=== PATIENT | female | born 1950 | race Caucasian/White ===

== ENCOUNTER 2018-06-25 08:48 | Observation (INO) | payer OTHER ==
--- NOTE | 2018-06-25 10:05 | EDPHY ---
H & P Smoking Status: Former smoker Time Seen by Provider: 06/25/18 09:28 HPI/ROS: CHIEF COMPLAINT: Abdominal pain, chest pain HISTORY OF PRESENT ILLNESS: 68-year-old female presents to the emergency department by private vehicle with her daughter complaining of right-sided pain that began late last night. The patient states that she has pain in her right upper quadrant and underneath her right breast. She states that she was just sitting on the couch when the pain began rather abruptly. She ate a late dinner around 930 or 10:00 p.m.. She has never had this pain in the past. She does not feel short of breath. She does however have COPD and when she had a biopsy done she did have a pneumothorax. She states that this feels somewhat similar although she has not had a recent biopsy or any other change. She recently flew in from [place] just a few days ago. She denies calf pain or swelling. Denies abdominal pain. No fevers or chills. REVIEW OF SYSTEMS: Constitutional: No fever, no chills. Eyes: No double or blurry vision. ENT: No sore throat. Respiratory: No cough, no shortness of breath. Cardiac: No chest pain. Gastrointestinal: Abdominal pain as above. No vomiting or diarrhea. Genitourinary: No dysuria. Musculoskeletal: No neck or back pain. Skin: No rashes. Neurological: No headache. (Cassi Evansa Maggie) Past Medical/Surgical History: COPD, breast cancer treated with radiation and lumpectomy, CABG (Cassi Evansa Maggie ) Social History: Visiting from [place] (Cassi Evansa Maggie) Physical Exam: General Appearance: Alert, no distress. 144/64, 36.5 temperature nontoxic- appearing. Eyes: Pupils equal and round. Extraocular motions are all intact. ENT: Mouth: Mucous membranes moist. Respiratory: No wheezing, rhonchi, or rales, lungs are clear to auscultation. Unable to reproduce chest wall pain with palpation to the anterior aspect of her right chest wall. Cardiovascular: Regular rate and rhythm. Gastrointestinal: Abdomen is soft. She has tenderness with palpation in the right upper quadrant. There is no masses, rebound or guarding noted. No CVA tenderness bilaterally. Neurological: Alert and oriented x 3, cranial nerves II through XII grossly intact Skin: Warm and dry, no rashes. Musculoskeletal: Nontender to palpate along the cervical, thoracic or lumbar spine. Neck is supple. Extremities: Full range of motion and no peripheral edema. Psychiatric: Patient is oriented X 3, there is no agitation. (Sujatha Evans) Constitutional: Initial Vital Signs Temperature (C) 36.5 C 06/25/18 08:50 Heart Rate 65 06/25/18 08:50 Respiratory Rate 18 06/25/18 08:50 Blood Pressure 144/64 H 06/25/18 08:50 O2 Sat (%) 92 06/25/18 08:50 O2 Delivery Mode Room Air Allergies/Adverse Reactions: No Known Allergies Allergy (Verified 06/25/18 13:20) Home Medications: Medication Instructions Recorded Albuterol Sulfate [Proair Hfa] 1 - 2 puffs IH Q4H 06/25/18 Atorvastatin Calcium [Lipitor 40 40 mg PO DAILY 06/25/18 mg (*)] Cholecalciferol Vit D3 [Vitamin D3 2,000 units PO DAILY 06/25/18 (*)] FLUoxetine HCL [Fluoxetine HCl] 40 mg PO DAILY 06/25/18 Levothyroxine [Synthroid 100 mcg 100 mcg PO DAILY06 06/25/18 (*)] Lisinopril [Zestril 10 mg (*)] 10 mg PO DAILY 06/25/18 Omeprazole 20 mg PO DAILY 06/25/18 Tiotropium Inhaler [Spiriva 18 mcg IH DAILY 06/25/18 Handihaler] Medical Decision Making - Diagnostics Imaging: Discussed imaging studies w/ call worker person Radiologist, I viewed and interpreted images myself - Diagnostics EKG Interpretation: EKG reveals normal sinus rhythm. This was reviewed by Dr. Refugio Maciel. See interpretation in trace master. (Sujatha Evans) ED Course/Re-evaluation: 60-year-old female presents to the emergency department with right-sided chest pain and abdominal pain. The patient has an elevated D-dimer of 0.7. As concerned about possible pulmonary embolism. CT pulmonary angiogram reveals pulmonary nodule in the left upper lobe without evidence of pulmonary embolism. Patient also had some discomfort in her right upper quadrant. This was tender to palpate. Her liver function tests were normal. Lipase was normal ultrasound of the right upper quadrant was essentially negative. The patient had elevated troponin of 0.19 and this was repeated on new blood and was elevated at 0.22. The patient will be admitted to the hospitalist to the telemetry floor. She was given full-strength aspirin in the emergency department. The case was discussed with Dr. Refuigo Maciel, secondary supervising physician, who did not directly evaluate the patient but agrees with treatment and plan. ( Sujatha Evans) I did not see this patient while she was in the emergency department. However her care was discussed with the PA while the patient was in the department. I agree with treatment plan and management (Refugio Maciel) Differential Diagnosis: Including but not limited to cholecystitis, cholelithiasis, GERD, peptic ulcer disease, pneumothorax, myocardial infarction, pneumonia, COPD exacerbation ( Sujatha Evans) - Data Points Laboratory Results: Laboratory Results 06/25/18 09:55 06/25/18 09:55 Medications Given: Discontinued Medications Aspirin (Aspirin) 325 mg PO EDNOW ONE Stop: 06/25/18 13:23 Last Admin: 06/25/18 13:28 Dose: Not Given Aspirin (Aspirin) 325 mg PO DAILY MAC Stop: 12/23/18 08:59 Last Admin: 06/26/18 10:39 Dose: 325 mg Atorvastatin Calcium (Lipitor) 40 mg PO DAILY MAC Stop: 12/23/18 08:59 Last Admin: 06/26/18 10:39 Dose: 40 mg Enoxaparin Sodium (Lovenox) 40 mg SC DAILY MAC Stop: 12/23/18 08:59 Last Admin: 06/26/18 10:40 Dose: 40 mg Fluoxetine HCl (Prozac) 40 mg PO DAILY MAC Stop: 12/23/18 08:59 Last Admin: 06/26/18 10:39 Dose: 40 mg Levothyroxine Sodium (Synthroid) 100 mcg PO DAILY06 MAC Stop: 12/23/18 05:59 Last Admin: 06/26/18 05:54 Dose: 100 mcg Lisinopril (Zestril) 10 mg PO DAILY MAC Stop: 12/23/18 08:59 Last Admin: 06/26/18 10:39 Dose: 10 mg Pantoprazole Sodium (Protonix) 40 mg PO DAILY MAC Stop: 12/23/18 08:59 Last Admin: 06/26/18 10:39 Dose: 40 mg Tiotropium [place] (Spiriva Handihaler) 18 mcg IH DAILY MAC Stop: 12/23/18 08:59 Last Admin: 06/26/18 10:03 Dose: 1 puffs Point of Care Test Results: Chemistry 06/25/18 06/25/18 12:42 12:26 POC Troponin I 0.22 ng/mL H ng/mL 0.19 ng/mL H ng/mL (0.00-0.08) (0.00-0.08) Departure - Departure Disposition: [facility] Inpatient Acute Clinical Impression: Right sided abdominal pain, Right-sided chest pain, Elevated troponin Condition: Good
[2018-06-25 10:11] LABS: PLATELET COUNT 194 10^3/uL (150-400)
[2018-06-25] MEDS ORDERED: IOPAMIDOL (ISOVUE 370) 100 ML BTL IV ONE (10:38)
[2018-06-25] MEDS ORDERED: ASPIRIN 325 MG TAB PO ONE (13:22)
[2018-06-25] MEDS ORDERED: ACETAMINOPHEN 325 MG TAB PO PRN (13:49)
[2018-06-25] MEDS ORDERED: ALBUTEROL 60 PUFFS/8 GM MDI IH PRN (14:30)
--- NOTE | 2018-06-25 16:01 | CPEKG ---
Test Reason : OPEN Blood Pressure : / mmHG Vent. Rate : 053 BPM Atrial Rate : 053 BPM P-R Int : 175 ms QRS Dur : 078 ms QT Int : 468 ms P-R-T Axes : 067 038 068 degrees QTc Int : 440 ms Sinus rhythm Nonspecific T abnormalities, anterior leads Confirmed by Refugio Maciel ([id number]) on 06/25/2018 4:01:15 PM Referred By: Confirmed By:Refugio Maciel
--- NOTE | 2018-06-25 18:42 | GHP ---
[f rep st] HISTORY AND PHYSICAL DATE OF ADMISSION: 06/25/2018 PRIMARY CARE PROVIDER: The patient is traveling from [place]. CHIEF COMPLAINT: Right-sided chest pain. HISTORY OF PRESENT ILLNESS: The patient is a pleasant 68-year-old female with a past medical history of hypertension, COPD, who is traveling to [place] with her daughter as her daughter is moving to [facility]. She presented to the [facility] emergency room after developing rather abru pt onset right-sided pleuritic like chest pain last evening when she was sitting down watching TV. S he monitored the pain overnight but then with the persistence of it came in for evaluation today. In the emergency room, she was found to have an elevated D-dimer of 0.70 and troponin of 0.22. She und erwent further investigation with a CT angiography of the chest and thorax. No definite evidence of thromboemboli was seen. She did have evidence of an atherosclerotic aorta without aneurysm or dissec tion. Severe bullous emphysema was also found. Mild cardiomegaly was noted. With the elevated trop onin and chest pain symptoms, she is being admitted for further observation and workup. PAST MEDICAL HISTORY: 1. Ascending aorta aneurysm repair with valve repair, suspecting mitral. 2. Hypertension. 3. COPD. 4. Hypothyroidism. 5. Hyperlipidemia. PAST SURGICAL HISTORY: History of lung biopsy complicated by pneumothorax, ascending aortic aneurysm repair and the patient states also a valve was operated on, but not replaced, suspecting mitral. Re cords not currently available. MEDICATIONS: 1. Albuterol every 4 hours as needed. 2. Lipitor 40 mg daily. 3. Fluoxetine 40 mg daily. 4. Levothyroxine 100 mcg daily. 5. Lisinopril 10 mg daily. 6. Omeprazole 20 mg daily. 7. Spiriva 1 puff daily. ALLERGIES: No known drug allergies. FAMILY HISTORY: Mother and father are both . Father of heart disease. Mother at an ad vanced age in her 90s, but had a history of diabetes. SOCIAL HISTORY: The patient is currently . She has 1 daughter who has recently moved to [facility]. She previously smoked but has quit tobacco. She is a full code status. REVIEW OF SYSTEMS: CONSTITUTIONAL: No complaints of any fevers or chills. ENT: No recent upper re spiratory illnesses over the past 1-2 months. CARDIOVASCULAR: No complaints of any left-sided chest pain, neck pain or left arm pain. No palpitations or syncopal episodes. RESPIRATORY: No complaint s of shortness of breath, although she does describe right-sided pleuritic-type chest pain. GI: No nausea, vomiting, diarrhea, or constipation. : No reports of any difficulty with urination. NEUR OLOGIC: No complaints of headaches or focal weakness. HEMATOLOGIC: No history of any deep vein thr ombosis or pulmonary embolism. PSYCHIATRIC: No anxiety or depression. ENDOCRINE: No history of po lyuria or heat intolerance. SKIN: No new skin rashes. MUSCULOSKELETAL: . PHYSICAL EXAMINATION: CHEST: Clear on auscultations. Somewhat diminished breath sounds throughout. HEART: Regular. No distinct murmurs appreciated. ABDOMEN: Soft, nontender, nondiste nded. : No Tyler catheter in place. EXTREMITIES: No significant pitting edema or calf pain with palpation of her calf muscles. NEUROLOGIC: Cranial nerves 2-12 appear grossly intact with 5/5 stre ngth in extremities. LABORATORY DATA: White blood cell count is 6, hemoglobin 12, platelets 194. Sodium 143, potassium 4 .1, chloride 107, bicarb 26, BUN 19, creatinine 0.9, glucose 118, AST 24, ALT 30, alk phos 120, bilir ubin is 0.5. Troponin 0.22. Lipase 114. D-dimer 0.70. IMAGING: As detailed in the HPI. Also with unremarkable abdominal ultrasound and no pneumonia seen on chest x-ray. ECG shows sinus bradycardia with decreased T-waves in V2 and V3. ASSESSMENT/PLAN: 1. Chest pain. The patient is describing a pleuritic-like chest pain in the right side of her chest under the right breast which feels deeper down in her lung tissue. No evidence of PE by CT imaging. However, her troponin is mildly elevated. I recommend admission overnight to trend her troponins w ith a repeat ECG as well tomorrow. She is currently without any significant chest pain so I think we can follow for now without any nitroglycerin drip or anticoagulation, but consider if escalation ove rnight. I will also obtain an echocardiogram as well as lower extremity Dopplers. Considering the e levated D-dimer and recent long road trip from [place]. 2. Ascending aortic aneurysm. Patient states she has had a ascending aneurysm that was previously o perated on. We will await further evaluation with echo. 3. Hypertension. Continue current lisinopril. 4. Chronic obstructive pulmonary disease. Continue with current nebulizer regimen. 5. History of breast cancer. Patient states history of breast cancer on the left, treated with lump ectomy and radiation. No chemotherapy. 6. Hypothyroidism. Continue current dosing of levothyroxine. 7. Hyperlipidemia. Continue statin therapy. We will check a lipid panel in the morning. 8. Deep venous thrombosis prophylaxis. Lovenox. DISPOSITION: I will admit her under observation status. /[id number]/MODL
[2018-06-26 03:58] LABS: PLATELET COUNT 187 10^3/uL (150-400)
[2018-06-26] MEDS ORDERED: LEVOTHYROXINE 100 MCG TAB PO SCH (06:00)
[2018-06-26] MEDS ORDERED: FLUoxetine 20 MG CAP PO SCH (09:00)
[2018-06-26] MEDS ORDERED: PANTOPRAZOLE SODIUM 40 MG TAB PO SCH (09:00)
[2018-06-26] MEDS ORDERED: LISINOPRIL 10 MG TAB PO SCH (09:00)
[2018-06-26] MEDS ORDERED: ATORVASTATIN CALCIUM 40 MG TAB PO SCH (09:00)
[2018-06-26] MEDS ORDERED: TIOTROPIUM INHALER 18 MCG/DOSE 5 DOSE/MDI IH SCH (09:00)
[2018-06-26] MEDS ORDERED: ASPIRIN 325 MG TAB PO SCH (09:00)
[2018-06-26] MEDS ORDERED: ENOXAPARIN 40 MG/0.4 ML SYR SC SCH (09:00)
--- NOTE | 2018-06-26 10:47 | ASMTCASEMG ---
Living Arrangements What is your living Answers: With Spouse arrangement? Who do you live with? Type Of Residence What kind of residence do Answers: House you live in? Discharge Plan Comments Coordination Status Comments Notes: CM spoke to COLLIN Lord regarding d/c POC. Pt is a 68 y/o female admitted for right sided chest pain. Pt will most likely d/c independent when medically stable. Pt is scheduled for an echo. No other needs at this time. CM available for changes. Plan: Independent Date Signed: 06/26/2018 10:47 AM Electronically Signed By:DERRELL Emanuel
[2018-06-26 11:38] VITALS: BP 142/55
--- NOTE | 2018-06-26 12:27 | ECHO ---
[email or web address] [address] [address] Main: [phone] Fax: Transthoracic Echocardiogram Name: KARLA LEE MR#: [id number] Study Date: 06/26/2018 Study Time: 09:00 AM Date of : 1950 Age: 68 year(s) Height: 165.1 cm (65 in.) Weight: 97.98 kg (216 lb.) BSA: 2.04 m2 Gender: Female Examination: Indication: Right sided chest pain, Ascending Ao replacement Image Quality: Contrast: Requested by: Claudy Zuniga BP: 111 mmHg/59 mmHg Heart Rate: Rhythm: Normal sinus rhythm Indication: Right sided chest pain, Ascending Ao replacement Procedure Staff System Configuration Specialist: Mynor Cortez RDCS Reading Physician: Keith Vela MD Requesting Provider: Conclusions: Normal size left ventricle. Mild concentric LV hypertrophy. Normal global systolic LV function. EF is 76 %. Diastolic dysfunction is present. . Normal size right ventricle. Mild mitral valve leaflet calcification is present. Trivial mitral valve regurgitation. Mild aortic valve regurgitation is present. The tricuspid valve is normal in appearance and function. Mild tricuspid regurgitation is present. Trivial pulmonic valve regurgitation. There is a Ascending aorta replacement measuring 3.0cm.. No pericardial effusion. Measurements: Chambers Valvular Assessment AV/MV Valvular Assessment TV/PV Normal Normal Normal Name Value Range Name Value Range Name Value Range Ao Stella (MM): 2.5 cm (2.2 cm-3.7 AV Vmax: 2.02 m/s (1 m/s-1.7 TR Vmax: 3.05 mm/s ( - ) cm) m/s) TR PGmax: 37 mmHg ( - ) IVSd (2D): 1.1 cm (0.6 cm-1.1 AV maxP mmHg ( - ) syst. PAP: 42 mmHg ( - ) cm) AV meanP mmHg ( - ) PV Vmax: 1.06 m/s (0.6 m/s-0.9 LVDd (2D): 4.2 cm (3.9 cm-5.3 ANIA (VTI): 1.2 cm ( - ) m/s) cm) AR (PHT): 519 ms ( - ) PV PGmax: 4 mmHg ( - ) LVDs (2D): 2.3 cm (2.1 cm-4 MV E Vmax: 1.16 m/s ( - ) cm) MV A Vmax: 0.95 m/s ( - ) LVPWd (2D): 1.0 cm ( - ) MV E/A: 1.22 ( - ) LVOTd 1.9 cm 1.9 cm mm Patient: KARLA LEE Study Date: 06/26/2018 Page 1 of 2 09:00 AM LVEF (2D): 76 (>=54 %) Continued Measurements: Chambers Valvular Assessment AV/MV Valvular Assessment TV/PV Name Value Name Value Name Value LADs Lon.5 cm MV E' Septal: 0.07 m/s CVP (est.): 5 mmHg LA Area: 15.8 cm2 MV E/E' Septal: 17.00 LA Volume: 51 ml MV E/E' Lateral: 18.60 LA Volume Index: 25.0 ml/m2 AR Vmax: 2.89 cm/s AR VTI: 175.0 cm Findings: Left Ventricle: Normal size left ventricle. Mild concentric LV hypertrophy. Normal global systolic LV function. EF is 76 %. No regional wall motion abnormality. Diastolic dysfunction is present. . Right Ventricle: Normal size right ventricle. Normal RV function. Left Atrium: The left atrium is normal in size. Right Atrium: The right atrium is normal in size. Mitral Valve: Mild mitral valve leaflet calcification is present. Trivial mitral valve regurgitation. Aortic Valve: The aortic valve is tri-leaflet and functions normally. Mild aortic valve regurgitation is present. Tricuspid Valve: The tricuspid valve is normal in appearance and function. Mild tricuspid regurgitation is present. The pulmonary artery pressure is mildly increased. Pulmonic Valve: The pulmonic valve is normal in appearance and function. Trivial pulmonic valve regurgitation. Aorta: There is a Ascending aorta replacement measuring 3.0cm.. The aorta is normal. Pericardium: No pericardial effusion. (No Signature Object) Patient: KARLA LEE Study Date: 06/26/2018 Page 2 of 2 09:00 AM [id number]
--- NOTE | 2018-06-27 16:37 | GDS ---
[f rep st] DISCHARGE SUMMARY PRIMARY CARE PROVIDER: Located in [place], patient is currently traveling. DISCHARGE DIAGNOSIS: Right pleuritic right-sided chest pain. HISTORY OF PRESENT ILLNESS: The patient is a pleasant 68-year-old female with a past medical history of hypertension, COPD, and ascending aortic aneurysm repair who is traveling to [place] from [facility] to help her daughter move as she is moving into a home in [place]. She stated that she was helpi ng her daughter move her furniture out of her [employer] into her new home, she developed significant gurjit rtness of breath she stated during that time, but no chest pain. In the evening after they had been finished it doing the moving and she was relaxing on the couch, she developed rather severe right-felicia ed pleuritic-like chest pain. She presented to [facility] for evaluation where she w as noted to have a mildly elevated troponin 0.22. Her ECG did not show any ST-segment deviations or T-wave inversions. She did also have a D-dimer that was mildly elevated at 0.70. She had a CT angio graphy of her chest for further evaluation. This did not show any pulmonary embolism. No aneurysm o r dissection was noted. Severe bullous emphysema was, however, seen. She also underwent right upper quadrant ultrasound of her abdomen to identify for any potential abdominal source of her symptoms. There was no cholelithiasis noted or biliary duct dilatation. She was admitted to the hospital and underwent further investigation, including an echocardiogram valdez t showed an ejection fraction estimated at 76% with diastolic dysfunction. No severe valve abnormali ties were seen. Her troponins trended down overnight. We also obtained an ultrasound of her lower e xtremity to evaluate for the possibility of a deep vein thrombosis considering the long road trip. T his was, however, also negative. Her symptoms resolved and no other real worrisome findings were alexus ntified. It was then discussed and felt that her pain may have been related to her increased work of breathing that day and also considering her emphysema, she may have been somewhat susceptible with a brupt change in altitude from [place] to [place]. I did advise her that if she returns to [facility], she may want to make her visits brief and try to sleep at a lower altitude, so as not to result in any hypoxia in light of her underlying COPD. She states she normally does use oxygen at nighttime, but has not had this available to her, but is currently working with a wood barker back in [place] to re-obtain a new oxygen prescription. I did also ask her to check her pulse oximetry when she is u p at a higher altitude, such as [place]. She does have a pulse oximeter that she keeps in her purs e. The patient was agreeable to and wanted discharge from the hospital today. PHYSICAL EXAMINATION: GENERAL: She was stable as compared to yesterday's exam. VITAL SIGNS: She w as afebrile with a blood pressure 142/55, heart rate 63, respirations 14 saturating 91% on room air. DISCHARGE MEDICATIONS: 1. Albuterol inhaler 1-2 puffs every 4 hours as needed. 2. Atorvastatin 40 mg daily. 3. Fluoxetine 40 mg daily. 4. Levothyroxine 100 mcg daily. 5. Lisinopril 10 mg daily. 6. Omeprazole 20 mg daily. 7. Spiriva 1 puff daily. DISCHARGE INSTRUCTIONS: I advised her to return to the ER should she had any recurrence of her sympt oms. Otherwise, she was cautioned about hypoxia at higher altitudes. /[id number]/MODL
--- NOTE | 2018-06-28 12:56 | CPEKG ---
Test Reason : OPEN Blood Pressure : / mmHG Vent. Rate : 053 BPM Atrial Rate : 052 BPM P-R Int : 178 ms QRS Dur : 079 ms QT Int : 473 ms P-R-T Axes : 069 045 050 degrees QTc Int : 445 ms Sinus rhythm Borderline T abnormalities, anterior leads Confirmed by Keith Vela ([id number]) on 06/28/2018 12:56:35 PM Referred By: Confirmed By:Keith Vela
== END 2018-06-26 15:45 | disposition home or self-care (01) ==
LOC: F2W 13:33
PROVIDERS: ADMIT Internal Medicine; ATTEND Internal Medicine
DX: R07.89 Other chest pain (principal); R79.89 Other specified abnormal findings of blood chemistry; Z85.3 Personal history of malignant neoplasm of breast
CPT/HCPCS: 71046; 71275; 76705; 93005; 93306; 93970; 96372; 99285; G0378; J1650; Q9967; 84484-PO